=== PATIENT | female | born 1985 | race Caucasian/White ===

== ENCOUNTER 2016-09-13 12:02 | Emergency (ER) | payer MEDICAID, OTHER ==
[2016-09-13 14:18] LABS: Hematocrit 44 % (35-47); Mean Corpuscular HGB Conc 34 g/dl (31-36); Mean Corpuscular Hemoglobin 29 pg (27-31); Mean Corpuscular Volume 86 fL (80-97); Mean Platelet Volume 9 um3 (7.4-10.4); Red Blood Count 5.11 10^6/ul (4.0-5.4); Red Cell Distribution Width 14 % (10.5-15)
--- NOTE | 2016-09-13 14:33 | RAD ---
INDICATION: Difficulty swallowing. COMPARISON: There are no prior studies available for comparison. TECHNIQUE: Dual-energy PA and lateral views of the chest were obtained. FINDINGS: The heart is within normal limits in size. Mediastinal and hilar contours appear within normal limits. The lungs are clear. No pleural effusion is present. IMPRESSION: NO EVIDENCE FOR ACTIVE CARDIOPULMONARY DISEASE.
[2016-09-13 14:40] LABS: ALT 14 U/L (7-52); AST 17 U/L (13-39); Albumin 3.9 g/dL (3.2-5.2); Alcohol < 10 mg/dL (<10); Alkaline Phosphatase 58 U/L (34-104); Anion Gap 5 mmol/L (2-11); BUN/Creatinine Ratio 14.7 (8-20); Blood Urea Nitrogen 10 mg/dL (6-24); CO2 Carbon Dioxide 27 mmol/L (22-32); Calcium 9.3 mg/dL (8.6-10.3); Chloride 107 mmol/L (101-111); EGFR African American 131.6 (>60); EGFR Non-African American 102.3 (>60); Globulin 2.6 g/dL (2-4); Glucose 91 mg/dL (70-100); Magnesium 2.2 mg/dL (1.9-2.7); Potassium 4.8 mmol/L (3.5-5.0); Sodium 139 mmol/L (133-145); Total Protein 6.5 g/dL (6.4-8.9)
[2016-09-13 14:46] LABS: TSH (Thyroid Stimulating Horm) 1.19 mcIU/mL (0.34-5.60)
[2016-09-13 15:59] LABS: Urine Bilirubin Negative (Negative); Urine Glucose Negative (Negative); Urine Nitrite Negative (Negative)
[2016-09-13 16:01] LABS: Benzodiazepine Urine Screen None Detected (None Detect)
[2016-09-13] MEDS ORDERED: Gadoteridol* (CONTRAST) 279.3 MG/ML 10 ML IV ONE (19:57)
--- NOTE | 2016-09-13 21:27 | RAD ---
Indication: Lower extremity weakness. Image sequences: Sagittal and axial T1, axial T2, FLAIR, diffusion and susceptibility weighted images of the brain were obtained. 15 mL of ProHance was injected and axial coronal and sagittal T1-weighted postcontrast images were repeated. Ventricular structures are midline. No midline shift is noted. The extra-axial spaces are unremarkable. The FLAIR images demonstrates no evidence of vasogenic edema. No restriction of diffusion is noted on the diffusion-weighted images. Susceptibility weighted images demonstrates no evidence of residual hemosiderin. There are no other high or low signal lesions identified. Mastoid air cells and paranasal sinuses demonstrates opacification of the right mastoid air cells consistent with right mastoid sinusitis. Postcontrast images demonstrates no evidence of abnormal enhancement. IMPRESSION: No intracranial lesion is identified.
--- NOTE | 2016-09-13 21:31 | RAD ---
Indication: Lower extremity weakness. Image sequences: Sagittal T1, T2, STIR, axial T2 and gradient echo images were obtained. Precontrast axial images were obtained. 15 mL of ProHance was injected and postcontrast images were repeated. Vertebral bodies appear normal in height. Normal bone marrow signal is noted. No evidence of disc protrusion is noted. The spinal cord is otherwise unremarkable. The intervertebral foramen appear patent. No abnormally enhancing lesions are identified. IMPRESSION: No evidence of spinal cord abnormality is noted in the cervical spine.
[2016-09-13 22:11] VITALS: BP 119/71
--- NOTE | 2016-09-13 22:55 | CONS ---
CONSULTATION REPORT: DATE OF CONSULTATION: 09/13/16 PHYSICIAN CONSULTING: Dr. Monreal. REASON FOR CONSULT: Change in speech, swallow, and weakness. HISTORY OF PRESENT ILLNESS: Mily Jimenez is a 30-year-old woman with a history of anxiety, depression, methamphetamine abuse, currently in [facility] with a family history of MS who presents to the emergency room for over a week of change in speech and swallow, head and neck pain, and feeling today of being weak in the legs. Mily indicates that her symptom started a week ago, Sunday, when it was hard to swallow and hard for her to open her mouth. She developed pain around her left eye and then her forehead. She indicates it is a very sharp, short pain that lasts for seconds. She developed change in her voice at that time. She describes this as a slow and drawn out voice. Her throat start to hurt on the left hand side. She also thinks she was fuzzy in the head, it was hard to think of words. Sometime, she would go blank when she was talking to her sister and her sister would ask her what was going on, and she would answer "I don't know." Today, she has felt some tightening in her feet and a feeling of weakness from the knees down. When asked if she has ever had any similar symptoms, she indicates last year she had a period of time where her left arm did not function and she could not move it. She was told part of her lung was crunched up in the lower part. She indicates that this caused hyperventilation. She indicates that when she has hyperventilation, sometimes she can have her hands curl up and have difficulty feeling her legs. This can occur when she has a panic attack, but also she tells me can occur separately only when she has hyperventilation. She was recently admitted to [facility] with change in swallow, eye pain, history of dilated pupil, bifrontal headache, and expressive aphasia per report. She tells me that when she was at hospital, she had difficulty with her hands curling up, feeling weak, and her legs giving out. Mily has been worked up by a previous neurologist, Dr. Gomez last fall. I do not have these records at this time. Notes from her admission at [facility] indicate negative work up. She indicates she did not follow up with Dr. Gomez and she also left [facility] because 'no one believed me, and they called me a drug addict.' PAST MEDICAL HISTORY: Includes anxiety and depression with history of panic attack. History of asthma, low vitamin B12, recurrent umbilical hernia, fracture of the left arm, irritable bowel syndrome, and she tells me that she has a cyst in her left maxillary sinus. PAST SURGICAL HISTORY: Surgeries include adenoidectomy in 1995, in 2011, hernia repair in 2011 and 2013, and hysterectomy in 2014. She is currently an inpatient at [facility]. MEDICATIONS: Not available to me. She indicates she was on Trileptal, which made her symptoms worse. She is currently on aspirin. She indicates she is also on phenobarbital, Benadryl, Klonopin, multivitamin, and she indicates she is on "Bactadryl" for withdrawal and mood, again her medication list is not available to me at this time. ALLERGIES: Include ATIVAN, which causes hallucinations; MORPHINE causes vomiting; and CECLOR with unknown side effect. SOCIAL HISTORY: Mily Jimenez stopped smoking a week ago. Prior to that, she smoked half a pack a day and records indicate even more smoking in the past. She denies any alcohol use and she denies any other drug use other than methamphetamines. FAMILY HISTORY: Reviewed and she does not know her mother's history as she is not in contact with her. Father has history of melanoma. There is a paternal grandmother with a history of lung, bone, and brain cancer. She indicates that her maternal grandmother also had a lung cancer and bone cancer, but may have been lung that went to bone. Her paternal grandmother also had a history of MS and glaucoma. There is a history of maternal uncle with lung and brain cancer and history of diabetes and glaucoma in the maternal grandmother and colon cancer in paternal grandfather. REVIEW OF SYSTEMS: On review of systems, she indicates that sometimes she can have intermittent blurring of vision in her left eye. She has had no change in hearing. Speech changes as mentioned above. She finds it harder to swallow when she chokes on spit, but she is able to otherwise eat. There has been no change in bowel or bladder function. Weakness has just been distally in her legs today. No other numbness. For a year, she has had off and on left-sided chest pain with pain with breathing. She has felt warm recently and she indicates she had a cough today, but is unable to tell me what she has coughed up. There has been no weight loss, drenching night sweats. She denies any rash. There has been no palpitations or shortness of breath. PHYSICAL EXAMINATION: On examination, Mily's most recent vitals included a blood pressure of 93/57, pulse of 64, respiratory rate 15, saturation is 100%, and temperature is 97.9 degrees Fahrenheit. She had a regular cardiac rhythm. Her lungs were clear to auscultation. There was no evidence of rash or peripheral edema. Her peripheral pulses were intact. She had multiple tattoos. She was awake, alert, articulate, although her speech varied from a drawn out voice somewhat to what you would hear in a southern accent to a different voice when she was speaking more quickly without any clear accent and less drawing out of voice. She had pupils that were equal and responsive to light. Her fundi were flat. No temporal pallor. No afferent pupillary defect. She had full extraocular movements with no nystagmus. Full garibay to confrontation. Her facial expression, sensation, and hearing were equal. Palate was upgoing. Tongue was midline. Sternocleidomastoid and trapezius were 5/5 in strength. There was normal bulk and tone. No pronator drift. She gave full strength in her upper and lower extremities. There was a little bit of shakiness with her right arm when moving to touch her nose, but no evidence of dysmetria in either arm or leg. Her vibration sensation was normal at the toes. Proprioception was normal. There was no asymmetry to pinprick, cold, or light touch other than some decrease in light touch in the distal lateral right leg near the ankle, which could not be reproduced with the other modalities. Her Romberg was slightly wobbly. She could get on her heels and her toes and she was able to walk albeit slightly slow with an increased stance by a couple of inches. LABORATORY DATA: Data in hospital includes CBC, which was normal. INR was low at 0.85. Complete metabolic panel was normal. TSH was 1.19. Urinalysis showed low specific gravity. Tox screen showed a presumed positive barbiturate , her alcohol was less than 10. Her chest x-ray was reported as showing no evidence of active cardiopulmonary disease with the heart within normal limits, size, and mediastinal and hilar contours, which appeared to be within normal limits with clear lungs and no pleural effusion. Records from [facility] were also available and were reviewed. These were records from admission on . Of note, she had a CTA of the brain and neck, which were noted to be negative. IMPRESSION: Mily Jimenez is a 30-year-old woman with a history of anxiety, depression, panic attacks, previous neurologic symptoms last Fall (per notes it was a negative workup), and now with difficulty with change in speech, change in swallow, intermittent headache, change in vision, weakness in legs in the setting of being an inpatient from methamphetamine withdrawal. Her exam today is not revealing. Her voice change is very unusual and variable with drawn out words and may be nonphysiologic. With this constellation of symptoms however and family history of multiple sclerosis, it is important to look at MRI of the brain and cervical spine with and without contrast to make sure there is no structural lesion contributing to her symptoms. Her headache is very short and sharp on the left hand side and she has had a neck pain. She had a CTA of the brain and neck, which showed no evidence of aneurysm or dissection at [facility] per report. If no pathology is found, follow up with primary care and potentially ENT may be helpful to look for any further underlying cause of her symptoms. Interestingly, she does have many symptoms associated with hyperventilation, which she distinguishes some as being panic attacks but some as not. Clearly, this has been a complex situation, which has been chronic and occurring for a long time. At this point, I am not getting any history of loss of consciousness to suggest seizure activity. She did have episodes of going blank , but was able to respond to her sister during these spells and I think that seizure would be a less likely etiology. Over an hour was spent in direct patient care. Input was given to Dr. Ramos in the emergency room and further input will depend on results of scan. Total 1.5 hours coordinating care. Medication list was obtained after dictation , reviewed, and included in handwritten addendum. [id number]/[facility] #: [id number] MTDBernie
--- NOTE | 2016-09-15 15:01 | ED ---
Kiersten Pederson SooYoung, scribed for Matt Ramos MD on 09/13/16 at 1330 . Complex/Multi-Sys Presentation - HPI Summary HPI Summary: A 30 y/o F presents to ED with c/o dysphagia onset this AM. Associated sx: L- sided throat pain, bilat weakness from knees down, bilat foot "tightness" that radiates up her legs, "difficulty thinking and saying things," voice changes such as tone and mumbling. Pt is able to ambulate. Pt was seen at [facility] last week, with a multitude of symptoms include L eye pain, ONEIL , difficulty thinking, she was admitted, but left AMA the next day. She sees Dr. Gomez, neuro, due to prev TIA. She is scheduled to see him in October. Pt notes being a recovering drug addict. Pt is right-hand dominant. - History Of Current Complaint Chief Complaint: EDGeneral Time Seen by Provider: 09/13/16 13:17 Hx Obtained From: Patient Onset/Duration: Lasting Hours, Still Present Timing: Constant Severity Currently: Moderate Severity Initially: Moderate Associated Signs And Symptoms: Positive: Confusion - difficulty thinking, Weakness - bilat LE, Other - pos: throat pain, "foot tightness", voice changes - Allergies/Home Medications Allergies/Adverse Reactions: Allergies Allergy/AdvReac Type Severity Reaction Status Date / Time Cefaclor [From Ceclor] Allergy Unknown Verified 09/13/16 12:49 Reaction Details Lorazepam [From Ativan] Allergy Hallucinati Verified 09/13/16 12:49 ons Morphine Allergy Vomiting Verified 09/13/16 12:49 Home Medications: Home Medications Aspirin EC Low Dose* 81 mg PO DAILY 09/13/16 [History Confirmed 09/13/16] Baclofen 10 mg PO BID 09/13/16 [History Confirmed 09/13/16] Baclofen 10 mg PO TID 09/13/16 [History Confirmed 09/13/16] Multivitamin & Mineral 1 tab PO DAILY 09/13/16 [History Confirmed 09/13/16] OXcarbazepine TAB(*) 300 mg PO BID 09/13/16 [History Confirmed 09/13/16] Phenobarbital 32.4 mg PO EVERY OTHER DAY 09/13/16 [History Confirmed 09/13/16] PMH/Surg Hx/FS Hx/Imm Hx Previously Healthy: No Sensory History: Denies: Hx Deafness Opthamlomology History: Denies: Hx Legally Blind Neurological History: Reports: Hx Transient Ischemic Attacks (TIA) Psychiatric History: Reports: Hx Substance Abuse Infectious Disease History: No Infectious Disease History: Denies: Traveled Outside the [place] in Last 30 Days - Family History Known Family History: Positive: Diabetes, Other - CA - Social History Occupation: Unemployed Lives: Alone Alcohol Use: former last used 09/02/16 Hx Substance Use: Yes Substance Use Type: Reports: Heroin, Other Substance Use Comment - Amount & Last Used: last used 09/02/16 Hx Tobacco Use: Yes Smoking Status (MU): Light Every Day Tobacco Smoker Review of Systems Negative: Fever Positive: Other - pos: throat pain; dysphagia Positive: Other - pos: "feet tightness" Neurological: Other - pos: voice changes, confusion Positive: Weakness - bilat LE All Other Systems Reviewed And Are Negative: Yes Physical Exam Triage Information Reviewed: Yes Vital Signs On Initial Exam: Initial Vitals Temp Pulse Resp BP Pulse Ox 97.9 F 77 15 103/58 99 09/13/16 12:39 09/13/16 12:39 09/13/16 12:39 09/13/16 12:39 09/13/16 12:39 Vital Signs Reviewed: Yes Appearance: Positive: Well-Appearing, No Pain Distress Skin: Positive: Warm, Skin Color Reflects Adequate Perfusion, Dry Head/Face: Positive: Normal Head/Face Inspection Eyes: Positive: Normal ENT: Positive: Normal ENT inspection Neck: Positive: Supple, Nontender Respiratory/Lung Sounds: Positive: Clear to Auscultation, Breath Sounds Present Cardiovascular: Positive: RRR Abdomen Description: Positive: Nontender, Soft Musculoskeletal: Positive: Normal Neurological: Positive: Normal Psychiatric: Positive: Normal, Affect/Mood Appropriate - [place] Coma Scale Coma Scale Total: 15 Diagnostics - Vital Signs Vital Signs Temp Pulse Resp BP Pulse Ox 09/13/16 12:39 97.9 F 77 15 103/58 99 - Laboratory Lab Results: Lab Results 09/13/16 09/13/16 09/13/16 Range/Units 14:07 14:07 14:07 WBC 7.0 (3.5-10.8) 10^3/ul RBC 5.11 (4.0-5.4) 10^6/ul Hgb 15.0 (12.0-16.0) g/dl Hct 44 (35-47) % MCV 86 (80-97) fL MCH 29 (27-31) pg MCHC 34 (31-36) g/dl RDW 14 (10.5-15) % Plt Count 209 (150-450) 10^3/ul MPV 9 (7.4-10.4) um3 Neut % (Auto) 55.6 (38-83) % Lymph % (Auto) 34.3 (25-47) % [place] % (Auto) 6.4 (1-9) % Eos % (Auto) 3.2 (0-6) % Baso % (Auto) 0.5 (0-2) % Absolute Neuts (auto) 3.9 (1.5-7.7) 10^3/ul Absolute Lymphs (auto) 2.4 (1.0-4.8) 10^3/ul Absolute Monos (auto) 0.4 (0-0.8) 10^3/ul Absolute Eos (auto) 0.2 (0-0.6) 10^3/ul Absolute Basos (auto) 0 (0-0.2) 10^3/ul Absolute Nucleated RBC 0.01 10^3/ul Nucleated RBC % 0.1 INR (Anticoag Therapy) (0.89-1.11) Sodium 139 (133-145) mmol/L Potassium 4.8 (3.5-5.0) mmol/L Chloride 107 (101-111) mmol/L Carbon Dioxide 27 (22-32) mmol/L Anion Gap 5 (2-11) mmol/L BUN 10 (6-24) mg/dL Creatinine 0.68 (0.51-0.95) mg/dL Est GFR ( Amer) 131.6 (>60) Est GFR (Non-Af Amer) 102.3 (>60) BUN/Creatinine Ratio 14.7 (8-20) Glucose 91 (70-100) mg/dL Lactic Acid 1.2 (0.5-2.0) mmol/L Calcium 9.3 (8.6-10.3) mg/dL Magnesium 2.2 (1.9-2.7) mg/dL Total Bilirubin 0.30 (0.2-1.0) mg/dL AST 17 (13-39) U/L ALT 14 (7-52) U/L Alkaline Phosphatase 58 (34-104) U/L Troponin I 0.00 (<0.04) ng/mL Total Protein 6.5 (6.4-8.9) g/dL Albumin 3.9 (3.2-5.2) g/dL Globulin 2.6 (2-4) g/dL Albumin/Globulin Ratio 1.5 (1-3) TSH 1.19 (0.34-5.60) mcIU/mL Urine Color Urine Appearance Urine pH (5-9) Ur Specific Aladdin (1.010-1.030) Urine Protein (Negative) Urine Ketones (Negative) Urine Blood (Negative) Urine Nitrate (Negative) Urine Bilirubin (Negative) Urine Urobilinogen (Negative) Ur Leukocyte Esterase (Negative) Urine Glucose (Negative) Urine Opiates Screen (None Detect) Ur Barbiturates Screen (None Detect) Ur Phencyclidine Scrn (None Detect) Ur Amphetamines Screen (None Detect) U Benzodiazepines Scrn (None Detect) Urine Cocaine Screen (None Detect) U Cannabinoids Screen (None Detect) Serum Alcohol < 10 (<10) mg/dL 09/13/16 09/13/16 09/13/16 Range/Units 14:07 15:27 15:27 WBC (3.5-10.8) 10^3/ul RBC (4.0-5.4) 10^6/ul Hgb (12.0-16.0) g/dl Hct (35-47) % MCV (80-97) fL MCH (27-31) pg MCHC (31-36) g/dl RDW (10.5-15) % Plt Count (150-450) 10^3/ul MPV (7.4-10.4) um3 Neut % (Auto) (38-83) % Lymph % (Auto) (25-47) % [place] % (Auto) (1-9) % Eos % (Auto) (0-6) % Baso % (Auto) (0-2) % Absolute Neuts (auto) (1.5-7.7) 10^3/ul Absolute Lymphs (auto) (1.0-4.8) 10^3/ul Absolute Monos (auto) (0-0.8) 10^3/ul Absolute Eos (auto) (0-0.6) 10^3/ul Absolute Basos (auto) (0-0.2) 10^3/ul Absolute Nucleated RBC 10^3/ul Nucleated RBC % INR (Anticoag Therapy) 0.85 L (0.89-1.11) Sodium (133-145) mmol/L Potassium (3.5-5.0) mmol/L Chloride (101-111) mmol/L Carbon Dioxide (22-32) mmol/L Anion Gap (2-11) mmol/L BUN (6-24) mg/dL Creatinine (0.51-0.95) mg/dL Est GFR ( Amer) (>60) Est GFR (Non-Af Amer) (>60) BUN/Creatinine Ratio (8-20) Glucose (70-100) mg/dL Lactic Acid (0.5-2.0) mmol/L Calcium (8.6-10.3) mg/dL Magnesium (1.9-2.7) mg/dL Total Bilirubin (0.2-1.0) mg/dL AST (13-39) U/L ALT (7-52) U/L Alkaline Phosphatase (34-104) U/L Troponin I (<0.04) ng/mL Total Protein (6.4-8.9) g/dL Albumin (3.2-5.2) g/dL Globulin (2-4) g/dL Albumin/Globulin Ratio (1-3) TSH (0.34-5.60) mcIU/mL Urine Color Colorless Urine Appearance Clear Urine pH 6.0 (5-9) Ur Specific Aladdin 1.003 L (1.010-1.030) Urine Protein Negative (Negative) Urine Ketones Negative (Negative) Urine Blood Negative (Negative) Urine Nitrate Negative (Negative) Urine Bilirubin Negative (Negative) Urine Urobilinogen Negative (Negative) Ur Leukocyte Esterase Negative (Negative) Urine Glucose Negative (Negative) Urine Opiates Screen None detected (None Detect) Ur Barbiturates Screen Presumptive positive H (None Detect) Ur Phencyclidine Scrn None detected (None Detect) Ur Amphetamines Screen None detected (None Detect) U Benzodiazepines Scrn None detected (None Detect) Urine Cocaine Screen None detected (None Detect) U Cannabinoids Screen None detected (None Detect) Serum Alcohol (<10) mg/dL Result Diagrams: 09/13/16 14:07 09/13/16 14:07 Lab Statement: Any lab studies that have been ordered have been reviewed, and results considered in the medical decision making process. - Radiology CXR Xray Interpretation: No Acute Changes - IMPRESSION: No evidence for active cardiopulmonary dz Radiology Interpretation Completed By: Radiologist - EKG 1 EKG Rhythm: Sinus Bradycardia - Additional Comments Diagnostic Additional Comments: BRAIN MRI SCAN: Read by radiologist IMPRESSION: No intracranial lesion is identified. CERVICAL SPINE MRI: Read by radiologist IMPRESSION: No evidence of spinal cord abnormality is noted in the cervical spine. Complex Multi-Symp Course/Dx Course Of Treatment: Ms. Jimenez presented with a variety of disparate symptoms. Her W/U including MRI and Neuro consult was negative and she will be referred for outpatient W/U. - Diagnoses Provider Diagnoses: Dysphagia - Physician Notifications Discussed Care Of Patient With: Jailyn Gordon - neuro Time Discussed With Above Provider: 15:35 Instructed by Provider To: MD Will See In ED - and requested MRI Discharge - Discharge Plan Condition: Stable Disposition: HOME Patient Education Materials: Dysphagia (ED) Referrals: No Primary Care Phys,NOPCP [Primary Care Provider] - [facility] [Outside] Additional Instructions: Establish and follow up with a primary care provider. Please return to the ED if you experience new or worsening symptoms. Consult Consult: [id number] Gordon, neuro If MRI checks out, D/C pt to f/u in office. No need for admission. The documentation as recorded by the Kiersten rick SooYoung accurately reflects the service I personally performed and the decisions made by me, Matt Ramos MD.
== END 2016-09-13 22:08 | disposition home or self-care (01) ==
LOC: ED 12:02
DX: R13.10 Dysphagia, unspecified (principal); F17.210 Nicotine dependence, cigarettes, uncomplicated
CPT/HCPCS: 36415; 70553; 71020; 72156; 80053; 80307; 80320; 81003; 83605; 83735; 84443; 84484; 85025; 85610; 93005; 99283; A9579; G0480